=== PATIENT | male | born 1965 | race Caucasian/White ===

== ENCOUNTER → 2016-12-10 | Outpatient (CLI) | payer OTHER ==
[~2016-12-10] MED LIST: ASPI-435 PO; DEXM10CA PO; DIPH-437 PO; GABA-113 PO; HERBAL TEA PO; LAMO200T38 PO; MAGN250T9 PO; MULT-506 PO; PRLSR20 PO; VITAMIN E PO; [UNRECOGNIZED DRUG - CODE] PO
--- NOTE | 2016-12-10 14:02 | DIAGNOSTIC IMAGING REPORT ---
CT SCAN OF THE PARANASAL SINUSES CLINICAL HISTORY: Chronic sinusitis. Hypertrophy of the nasal turbinates. COMPARISON STUDY: No priors. TECHNIQUE: High-resolution CT scan of the paranasal sinuses is performed. Images are reviewed in the axial, sagittal, and coronal planes. IV contrast was not administered for this examination. The examination is performed using the fusion protocol. CT DOSE: 765.44 mGycm FINDINGS: Maxillary antra: There is a 1.6 cm retention cyst identified dependently in the left maxillary antrum. The maxillary antra are otherwise clear. Anterior ethmoid sinuses: Clear. Posterior ethmoid sinuses: Clear. Sphenoid sinuses: Trace mucosal thickening is seen within the right sphenoid sinus. Frontal sinuses: Trace mucosal thickening is seen bilaterally. Ostiomeatal complexes: Patent bilaterally. Frontoethmoidal and sphenoethmoidal recesses: Patent bilaterally. Carotid arteries: The carotid arteries are protuberant but covered and there is a septal attachment on the left. Ethmoid roofs: There is asymmetric elevation of the left ethmoid roof as compared to the right. Nasal turbinates: Normal in appearance. Nasal septum: There is mild left lower deviation of the bony nasal septum with a small spur. Optic nerves: Covered. Orbits: The bony orbits are intact. Orbital contents are normal in appearance. Calvarium: The imaged calvarium is normal in appearance Mastoid air cells: Well pneumatized. Brain parenchyma: Partially visualized brain parenchyma is within normal limits. IMPRESSION: Minimal paranasal sinus disease as detailed above. Electronically signed by: Du Melo M.D. 12/10/2016 2:00 PM Dictated Date/Time: 12/10/2016 1:57 PM
== END | disposition home or self-care (01) ==
LOC: C.CTS 13:19
DX: J34.3 Hypertrophy of nasal turbinates (principal)